=== PATIENT | female | born 1935 | race Caucasian/White ===

== ENCOUNTER 2016-09-28 10:33 | Day surgery (SDC) | payer MEDICARE, BC ==
--- NOTE | ~2016-09-28 | EGD ---
EGD REPORT [facility] [address] [place] [address] NAME: ZANDRA WINTERS : [birth year] STATUS : REG [facility]#: [id number] AGE: 80 ADM/REG DATE : 09/28/16 MR#: [id number] REPORT SERV DATE: 09/28/16 DICTATED BY: MARYBEL ALVARENGA DATE: 09/28/16 REPORT STATUS : Draft [facility]ANSCRIBED BY: [facility] DATE: 09/28/16 Endoscopy Center Patient Name: Zandra Winters Date of : 1935 Attending MD: NICOLE ALVARENGA MD Procedure Date No Time: 09/28/2016 Procedure: Colonoscopy Indications: FH of Colon Cancer - 1st degree relative, Iron deficiency anemia Referring MD: JACK HOLBROOK MD Medicines: See the Anesthesia note for documentation of the administered medications Complications: No immediate complications. Estimated blood loss: None. Procedure: Pre-Anesthesia Assessment: - ASA Grade Assessment: III - A patient with severe systemic disease. - ASA Grade Assessment: III - A patient with severe systemic disease. - Prior to the procedure, a History and Physical was performed, and patient medications and allergies were reviewed. The patient's tolerance of previous anesthesia was also reviewed. The risks and benefits of the procedure and the sedation options and risks were discussed with the patient. All questions were answered, and informed consent was obtained. Prior Anticoagulants: The patient has taken aspirin, last dose was 1 day prior to procedure. After reviewing the risks and benefits, the patient was deemed in satisfactory condition to undergo the procedure. After I obtained informed consent, the scope was passed under direct vision. Throughout the procedure, the patient's blood pressure, pulse, and oxygen saturations were monitored continuously. The PCF [id number] was introduced through the anus and advanced to the cecum, identified by appendiceal orifice and ileocecal valve. The ileocecal valve, appendiceal orifice and rectum were photographed. The entire colon was examined. The colonoscopy was performed without difficulty. The patient tolerated the procedure well. The quality of the bowel preparation was adequate. Findings: The perianal and digital rectal examinations were normal. Multiple medium-mouthed diverticula were found in the sigmoid colon and in the descending colon. EGD REPORT [address] [address] NAME: ZANDRA WINTERS : [birth year] STATUS : REG [facility] PAT#: [id number] AGE: 80 ADM/REG DATE : 09/28/16 MR#: [id number] REPORT SERV DATE: 09/28/16 DICTATED BY: MARYBEL ALVARENGA DATE: 09/28/16 REPORT STATUS : Draft TRANSCRIBED BY: [employer] DATE: 09/28/16 Non-bleeding internal hemorrhoids were found during retroflexion and were Grade I (internal hemorrhoids that do not prolapse). No other significant abnormalities were identified in a careful examination of the remainder of the colon. Impression: - Diverticulosis in the sigmoid colon and in the descending colon. - Non-bleeding internal hemorrhoids. Recommendation: - Patient has a contact number available for emergencies. The signs and symptoms of potential delayed complications were discussed with the patient. Return to normal activities tomorrow. Written discharge instructions were provided to the patient. - High fiber diet indefinitely. - Discharge patient to home. - Continue present medications. - Repeat colonoscopy is not recommended for surveillance. Procedure Code(s): --- Professional --- 84563, Colonoscopy, flexible, proximal to splenic flexure; diagnostic, with or without collection of specimen(s) by brushing or washing, with or without colon decompression (separate procedure) Diagnosis Code(s): --- Professional --- K64.0, First degree hemorrhoids K57.30, Diverticulosis of large intestine without perforation or abscess without bleeding Z80.0, Family history of malignant neoplasm of digestive organs D50.9, Iron deficiency anemia, unspecified CPT copyright 2013 [employer]. All rights reserved. The codes documented in this report are preliminary and upon casing man review may be revised to meet current compliance requirements. NICOLE ALVARENGA MD 09/28/2016 11:42 AM This report has been signed electronically. Number of Addenda: 0 Note Initiated On: 09/28/2016 10:58 AM Scope Withdrawal Time 0 hours 9 minutes 29 seconds EGD REPORT [facility] [address] [place] [address] NAME: ZANDRA WINTERS JESSIKA : 37 STATUS : REG [facility] PAT#: [id number] AGE: 80 ADM/REG DATE : 09/28/16 MR#: [id number] REPORT SERV DATE: 09/28/16 DICTATED BY: MARYBEL ALVARENGA DATE: 09/28/16 REPORT STATUS : Draft [facility]ANSCRIBED BY: [facility] DATE: 09/28/16 [address] [id number]
--- NOTE | ~2016-09-28 | EGD ---
EGD REPORT [facility] [address] [address] NAME: ZANDRA WINTERS : 37 STATUS : REG [facility]#: [id number] AGE: 80 ADM/REG DATE : 09/28/16 MR#: [id number] REPORT SERV DATE: 09/28/16 DICTATED BY: MARYBEL ALVARENGA DATE: 09/28/16 REPORT STATUS : Draft [facility]: [facility] DATE: 09/28/16 Endoscopy Center Patient Name: Zandra Winters Date of : 1935 Attending MD: NICOLE ALVARENGA MD Procedure Date No Time: 09/28/2016 Procedure: Upper GI endoscopy Indications: Iron deficiency anemia Referring MD: JACK HOLBROOK MD Medicines: See the Anesthesia note for documentation of the administered medications Complications: No immediate complications. Estimated blood loss: None. Procedure: Pre-Anesthesia Assessment: - ASA Grade Assessment: III - A patient with severe systemic disease. - Prior to the procedure, a History and Physical was performed, and patient medications and allergies were reviewed. The patient's tolerance of previous anesthesia was also reviewed. The risks and benefits of the procedure and the sedation options and risks were discussed with the patient. All questions were answered, and informed consent was obtained. Prior Anticoagulants: The patient has taken aspirin, last dose was 1 day prior to procedure. After reviewing the risks and benefits, the patient was deemed in satisfactory condition to undergo the procedure. After obtaining informed consent, the endoscope was passed under direct vision. Throughout the procedure, the patient's blood pressure, pulse, and oxygen saturations were monitored continuously. The GIF H190 [id number] was introduced through the mouth, and advanced to the second part of duodenum. The upper GI endoscopy was accomplished without difficulty. The patient tolerated the procedure well. Findings: The examined duodenum was normal. Biopsies were taken with a cold forceps for histology. Diffuse mild inflammation characterized by erythema was found in the gastric antrum. Biopsies were taken with a cold forceps for histology. The cardia and gastric fundus were normal on retroflexion. The examined esophagus was normal. Impression: - Normal examined duodenum. Biopsied. - Gastritis. Biopsied. EGD REPORT [address] [address] NAME: ZANDRA WINTERS : 37 STATUS : REG [facility] PAT#: [id number] AGE: 80 ADM/REG DATE : 09/28/16 MR#: [id number] REPORT SERV DATE: 09/28/16 DICTATED BY: MARYBEL ALVARENGA DATE: 09/28/16 REPORT STATUS : Draft TRANSCRIBED BY: [employer] DATE: 09/28/16 - Normal esophagus. Recommendation: - Patient has a contact number available for emergencies. The signs and symptoms of potential delayed complications were discussed with the patient. Return to normal activities tomorrow. Written discharge instructions were provided to the patient. - Regular diet. - Discharge patient to home. - Continue present medications. - Await pathology results. - Return to nurse practitioner in 4 weeks. Procedure Code(s): --- Professional --- 53783, Esophagogastroduodenoscopy, flexible, transoral; with biopsy, single or multiple Diagnosis Code(s): --- Professional --- K29.70, Gastritis, unspecified, without bleeding D50.9, Iron deficiency anemia, unspecified CPT copyright 2013 [employer]. All rights reserved. The codes documented in this report are preliminary and upon tan room supervisor review may be revised to meet current compliance requirements. NICOLE ALVARENGA MD 09/28/2016 11:24 AM This report has been signed electronically. Number of Addenda: 0 Note Initiated On: 09/28/2016 11:07 AM Scope Withdrawal Time 0 hours 0 minutes 0 seconds [id number] [id number]
[~2016-09-28 10:33] MED LIST: 8 HOUR650 MG PO; ACET500CAP PO; ASA5GR PO; ASAB PO; CENTRUM TAB1 TAB PO; CITRACAL PO; CITRUCEL PO; CITRUCEL500 MG PO; COR20 PO; DEMA20 PO; DEMADEX5 MG PO; DIOV160 PO; DSS PO; EXFORGE1 TA2 PO; FISH-EPA1000 MG PO; FLONASE NAS; GLUCCHONDR PO; GLUCOSAMINEPO PO; KLOR-CON 1010 MEQ PO; KLOR-CON M2020 MEQ PO; LIPITOR20 PO; LIPITOR40 PO; LOP25 PO; MULTIPLE VIT PO; NEXIUM40 PO; PEPCID COMPLETE PO; RECLAST IV; SINGULAIR1 PO; SPIRIVA INH; STOOL SOFTEN100 MG PO; SYN112 PO; TUMSROLL PO; TYLENOL ARTH650 MG PO; VITAMIN C100 MG PO; VITAMIN C500 M3 PO; VYTORIN 10/40 T1 TAB PO; ZYRTEC ALLGY10 MG PO; [UNRECOGNIZED DRUG - OTHER]
[2016-12-18] MEDS ORDERED: SINGULAIR1 PO (23:37)
[2016-12-18] MEDS ORDERED: CRESTOR20 MG PO (23:37)
[2016-12-18] MEDS ORDERED: NEXIUM40 PO (23:38)
[2016-12-18] MEDS ORDERED: SYN112 PO (23:38)
[2016-12-18] MEDS ORDERED: COR20 PO (23:39)
[2016-12-18] MEDS ORDERED: KDUR20 PO (23:47)
[2016-12-18] MEDS ORDERED: *UNABLE2 (23:48)
[2016-12-19] MEDS ORDERED: EXFORGE1 TA2 PO (02:59)
[2016-12-19] MEDS ORDERED: DEMADEX5 MG PO (03:00)
[2016-12-19] MEDS ORDERED: ASAB PO (03:02)
== END 2016-09-28 23:59 | disposition home or self-care (01) ==
LOC: DMU 10:33
PROVIDERS: Internal Medicine Gastroenterology
PROC: 0DJD8ZZ Inspection of Lower Intestinal Tract, Via Natural or Artificial Opening Endoscopic (ICD-10-PCS; 2016-09-28)
PROC: 0DB98ZX Excision of Duodenum, Via Natural or Artificial Opening Endoscopic, Diagnostic (ICD-10-PCS; principal; 2016-09-28 11:30)
PROC: 0DB68ZX Excision of Stomach, Via Natural or Artificial Opening Endoscopic, Diagnostic (ICD-10-PCS; 2016-09-28 11:30)
DX: K29.50 Unspecified chronic gastritis without bleeding (principal); D50.9 Iron deficiency anemia, unspecified; K64.0 First degree hemorrhoids; Z80.0 Family history of malignant neoplasm of digestive organs; I10 Essential (primary) hypertension; K21.9 Gastro-esophageal reflux disease without esophagitis; E78.00 Pure hypercholesterolemia, unspecified; Z95.0 Presence of cardiac pacemaker; K57.30 Diverticulosis of large intestine without perforation or abscess without bleeding; Z88.8 Allergy status to other drugs, medicaments and biological substances; Z79.899 Other long term (current) drug therapy; Z79.82 Long term (current) use of aspirin; Z90.49 Acquired absence of other specified parts of digestive tract; Z90.710 Acquired absence of both cervix and uterus; Z98.890 Other specified postprocedural states
CPT/HCPCS: 88305; 88342